=== PATIENT | female | born 1960 | race Hispanic/Latino ===

== ENCOUNTER 2024-03-17 12:24 | Emergency (ER) | payer SELFPAY ==
[2024-03-17] MEDS ORDERED: ONDANSETRON 4 MG/2 ML VIAL ONE (13:17)
[2024-03-17] MEDS ORDERED: FAMOTIDINE 20 MG/2 ML VIAL IV ONE (13:18)
[2024-03-17] MEDS ORDERED: NA CHLORIDE 0.9% 1,000 ML ONE (13:18)
[2024-03-17] MEDS ORDERED: PANTOPRAZOLE 40 MG INJ ONE (13:18)
[2024-03-17] MEDS ORDERED: MORPHINE 4 MG/ML SYR ONE (13:18)
[2024-03-17 13:21] LABS: Absolute Lymphocytes (CBC) 0.8 K/uL (0.7-4.9); Absolute Monocytes 0.2 K/uL (0.1-1.3); Absolute Neutrophil 6.6 K/uL (1.8-8.0); Basophils % 0.1 % (0-1.3); Hematocrit 30.3 % (36.0-45.0); Hemoglobin 10.1 g/dL (12.0-15.0); Lymphocytes % 10.3 % (15.3-44.8); MCH 30.3 pg (27.0-35.0); MCHC 33.4 g/dL (32.0-36.0); MCV 90.8 fL (80-100); MPV 9.8 fL (7.6-11.3); Monocytes % 2.6 % (3.3-12.3); Platelets 113 thou/uL (152-406); RBC Red Blood Cell Count 3.34 M/uL (3.86-4.86); Red Cell Distribution Width 14.8 % (12.1-15.2)
[2024-03-17 13:40] LABS: Albumin 2.2 g/dL (3.4-5.0); Albumin/Globulin Ratio 0.6 (1.1-1.8); Anion Gap 9.3 mEq/L (5.0-15.0); Bilirubin Total 0.8 mg/dL (0.2-1.0); Globulin 3.6 g/dL (2.3-3.5); Potassium 3.3 mEq/L (3.5-5.1); Protein, Total 5.8 g/dL (6.4-8.2)
--- NOTE | 2024-03-17 14:34 | RAD REPORT ---
EXAM DESCRIPTION: RAD - Chest Single View - 03/17/2024 2:22 pm CLINICAL HISTORY: COUGH COMPARISON: <Comparisons> FINDINGS: Lines: None. Lungs: Prominence of the basilar interstitial markings, left greater than right. Pleural: No significant pleural effusions or pneumothorax. Cardiac: The heart size is within normal limits. Mediastinum: Within normal limits. Bones: No acute fractures. Other: None IMPRESSION: Nonspecific prominence of the basilar interstitial markings without definite acute proce ss. Correlating with the same-day CT of the abdomen/pelvis, a trace left pleural effusion is noted.
--- NOTE | 2024-03-17 14:39 | RAD REPORT ---
EXAM DESCRIPTION: CTAbdomen Pelvis W Contrast - 03/17/2024 2:11 pm CLINICAL HISTORY: ABD PAIN COMPARISON: No comparisons TECHNIQUE: CT of the abdomen and pelvis was performed with contrast. All CT scans are performed using dose optimization technique as appropriate and may include automated exposure control or mA/KV adjustment according to patient size. FINDINGS: Lower chest: Trace pleural fluid bilaterally. Probable mild atelectasis. Liver: No acute abnormality or suspicious lesions. Biliary: No biliary ductal dilatation. Stomach: No significant focal abnormality. Duodenum: No significant focal abnormality. Pancreas: No significant abnormality. Spleen: No significant abnormality. Adrenal: No suspicious lesions. Kidney/ureter: No hydronephrosis. 2 mm stone in left kidney. Retroperitoneum: No retroperitoneal adenopathy. Vascular: No aneurysm. Bowel: Normal appendix. No bowel obstruction.. Peritoneum: No ascites or free air. Bladder: Grossly unremarkable. Reproductive: No adnexal masses. Bones: No acute fracture. Moderate disc height loss L5-S1. Other: n/a IMPRESSION: No acute intra-abdominal or pelvic finding. Nonobstructive left nephrolithiasis. No appe ndicitis.
[2024-03-17 14:43] LABS: Blood Morphology Comment NOT SEEN (NOT SEEN); Platelet Estimate ADEQ; White Blood Cell Scan OK (OK)
--- NOTE | 2024-03-17 15:45 | ER ---
Nurse's Notes [facility] Name: Erica Bee Age: 63 yrs Sex: Female : 1960 Arrival Date: 03/17/2024 Time: 12:24 Bed 18 Private MD: Diagnosis: Melena;Hematemesis Presentation: 03/17 12:39 Chief complaint: Patient states: Abdominal pains, nausea, fever, diarrhea, dark stools, ll1 dizzy, MORGAN, weak, muscle pains for 8 days. Coronavirus screen: Client denies travel out of the [place] in the last 14 days. Ebola Screen: Patient denies travel to an Ebola-affected area in the 21 days before illness onset. Initial Sepsis Screen: Does the patient meet any 2 criteria? No. Patient's initial sepsis screen is negative. Does the patient have a suspected source of infection? No. Patient's initial sepsis screen is negative. Risk Assessment: Do you want to hurt yourself or someone else? Patient reports no desire to harm self or others. Onset of symptoms was March 09, 2024. 12:39 Method Of Arrival: Ambulatory ll1 12:39 Acuity: ARMANDO 2 ll1 Triage Assessment: 12:40 General: Appears uncomfortable, ill, Behavior is calm, cooperative, appropriate for ll1 age, Reports fever for feeling ill for fatigue for. Neuro: Reports headache weakness. GI: Reports lower abdominal pain, upper abdominal pain, cramping, diarrhea, nausea. Historical: - Allergies: 12:41 No Known Allergies; ll1 - PMHx: 12:41 None; ll1 - PSHx: 12:41 None; ll1 - Immunization history:: Adult Immunizations up to date. - Infectious Disease History:: Denies. - Social history:: Smoking status: Patient denies any tobacco usage or history of. - Family history:: not pertinent. Screenin:[facility] ED Fall Risk Assessment (Adult) History of falling in the last 3 months, mb9 including since admission No falls in past 3 months (0 pts) Confusion or Disorientation No (0 pts) Intoxicated or Sedated No (0 pts) Impaired Gait No (0 pts) Mobility Assist Device Used No (0 pt) Altered Elimination No (0 pt) Score/Fall Risk Level 0 - 2 = Low Risk Oriented to surroundings, Maintained a safe environment, Educated pt \T\ family on fall prevention, incl call for assistance when getting out of bed. Abuse screen: Denies threats or abuse. Nutritional screening: No deficits noted. Tuberculosis screening: No symptoms or risk factors identified. Assessment: 13:34 General: Appears uncomfortable, Behavior is cooperative. Pain: Complains of pain in mb9 abdomen Pain does not radiate. Pain currently is 8 out of 10 on a pain scale. Quality of pain is described as throbbing, Pain began suddenly, Is continuous. Neuro: Hoffman Agitation-Sedation Scale (RASS): 0 - Alert and Calm Level of Consciousness is awake, alert, obeys commands, Oriented to person, place, time, situation, Appropriate for age. Cardiovascular: Patient's skin is warm and dry. Rhythm is sinus tachycardia. Respiratory: Airway is patent Respiratory effort is even, unlabored, Respiratory pattern is regular, symmetrical. Respiratory: Reports cough that is producing coffee ground emesis. GI: Abdomen is flat, non-distended, Bowel sounds present X 4 quads. Abd is soft and non tender X 4 quads. : No signs and/or symptoms were reported regarding the genitourinary system. EENT: No signs and/or symptoms were reported regarding the EENT system. Derm: Skin is pink, warm \T\ dry. Musculoskeletal: Range of motion: intact in all extremities. 14:31 Reassessment: No changes from previously documented assessment. Patient and/or family mb9 updated on plan of care and expected duration. Pain level reassessed. Patient is alert, oriented x 3, equal unlabored respirations, skin warm/dry/pink. 15:46 Reassessment: No changes from previously documented assessment. Patient and/or family mb9 updated on plan of care and expected duration. Pain level reassessed. Patient is alert, oriented x 3, equal unlabored respirations, skin warm/dry/pink. 17:29 Reassessment: No changes from previously documented assessment. Patient and/or family mb9 updated on plan of care and expected duration. Pain level reassessed. Patient is alert, oriented x 3, equal unlabored respirations, skin warm/dry/pink. Vital Signs: 12:39 BP 115 / 61; Pulse 117; Resp 16; Pulse Ox 99% on R/A; Height 5 ft. 2 in. ; Pain 10/10; ll1 13:36 BP 97 / 60; Pulse 105; Resp 16; Pulse Ox 100% on R/A; mb9 14:31 BP 101 / 55; Pulse 108; Resp 16; Pulse Ox 98% on R/A; mb9 15:48 BP 106 / 59; Pulse 102; Resp 18; Pulse Ox 100% on R/A; mb9 15:56 Weight 52.16 kg; Height 5 ft. 3 in. ; hb 17:29 BP 91 / 59; Pulse 99; Resp 16; Pulse Ox 99% on R/A; mb9 15:56 Body Mass Index 20.37 (52.16 kg, 160.02 cm) hb 12:39 Pain Scale: Adult ll1 ED Course: 12:27 Patient arrived in ED. im 12:41 Triage completed. ll1 12:42 Cecil Hernández MD is Attending Physician. rt 12:42 Arm band placed on Patient placed in an exam room, on a stretcher. ll1 12:59 Nicole Subramanian, RN is Primary Nurse. mb9 12:59 Placed in gown. Bed in low position. Call light in reach. Side rails up X 1. Provided mb9 Education on: press call light if needing anything. Client placed on continuous cardiac and pulse oximetry monitoring. NIBP monitoring applied. media monitor on. 13:15 Missed attempt(s): 20 gauge in right forearm. Bleeding controlled, band aid applied, mb9 catheter tip intact. 13:32 EKG done, by ED staff, reviewed by Cecil Hernández MD. em1 13:36 Initial lab(s) drawn, by ak, sent to lab. Inserted saline lock: 22 gauge in right mb9 antecubital area, using aseptic technique. Blood collected. 14:13 CT Abd/Pelvis - IV Contrast Only In Process Unspecified. EDMS 14:23 Chest Single View XRAY In Process Unspecified. EDMS 15:49 No provider procedures requiring assistance completed. mb9 15:49 Patient transferred, IV remains in place. mb9 15:54 called [facility] to start transfer talked to [facility] with Transfer Center. sp 16:44 Approval for pt: Erica Bee Facility: [facility] Address: [address] [place] [address], [address] #: [phone] Accepting MD: Dr. Chester Reed \[id number] Admin: Mikel Vela \[id number] Nurse Report #: [phone] Fax # (facesheet): [phone] *IMPORTANT*: Send imaging on disk and copy of chart with the patient. 17:48 called [facility] for transport talked to Jose. sp Administered Medications: 13:22 Drug: Famotidine IVP 20 mg IVP once; dilute with 10 mL 0.9% NaCl; give over 2 minutes mb9 Route: IVP; Site: right antecubital; 14:01 Follow up: Response: No adverse reaction mb9 13:28 Drug: Ondansetron IVP 4 mg IVP once; over 2 minutes Route: IVP; Site: right antecubital;mb9 14:01 Follow up: Response: No adverse reaction mb9 13:30 Drug: morphine IVP or IV 4 mg IVP once over 4 mins Route: IVP; Infused Over: 4 mins; mb9 Site: right antecubital; 14:01 Follow up: Response: No adverse reaction mb9 13:33 Drug: Pantoprazole IVP 80 mg IVP once Route: IVP; Site: right antecubital; mb9 14:01 Follow up: Response: No adverse reaction mb9 13:34 Drug: NS 0.9% IV 1000 ml IV at 1 bolus Per protocol; 1000 mL bolus Route: IV; Rate: 1 mb9 bolus; Site: right antecubital; 16:09 Follow up: Response: No adverse reaction; IV Status: Completed infusion mb9 Medication: 15:49 VIS not applicable for this client. mb9 Outcome: 15:45 ER care complete, transfer ordered by . rt 17:29 Transferred by ground EMS to [facility], Transfer form completed. mb9 X-rays sent w/ patient. 17:29 Condition: stable 17:29 Instructed on the need for transfer, 17:59 Patient left the ED. mb9 Signatures: Dispatcher [employer] EDMS Mariel Hartley Eric em1 Sherita Slaughter RN RN hb Lewis, Lynsay, RN RN 1 Nicole Subramanian RN RN mb9 Cecil Hernández MD MD rt Fernandez, Tiffani im
--- NOTE | 2024-03-17 15:46 | EDPHYS ---
Physician Documentation [facility] Name: Erica Bee Age: 63 yrs Sex: Female : 1960 Arrival Date: 03/17/2024 Time: 12:24 Bed 18 Private MD: ED Physician Cecil Hernández HPI: 03/17 13:50 This 63 yrs old Female presents to ER via Ambulatory with complaints of rt Headache, Fever, Abdominal Pain, Nausea/Vomiting/Diarrhea, Black/Tarry Stools, Dizziness. 13:50 Patient presents to the ED with generalized abdominal pain for about 8 days. Patient rt has been taking a lot of naproxen to no relief. Today, the patient developed black tarry stools as well as black vomit. Patient reports a headache, shortness of breath. Denies other acute complaints at this time, symptoms are moderate in severity, no other aggravating or alleviating factors.. Historical: - Allergies: 12:41 No Known Allergies; ll1 - PMHx: 12:41 None; ll1 - PSHx: 12:41 None; ll1 - Immunization history:: Adult Immunizations up to date. - Infectious Disease History:: Denies. - Social history:: Smoking status: Patient denies any tobacco usage or history of. - Family history:: not pertinent. ROS: 13:50 Constitutional: Negative for fever, chills, and weight loss, Cardiovascular: Negative rt for chest pain, palpitations, and edema, MS/Extremity: Negative for injury and deformity, Skin: Negative for injury, rash, and discoloration, 13:50 Abdomen/GI: Positive for abdominal pain, nausea, vomiting, Exam: 13:50 Constitutional: This is a well developed, well nourished patient who is awake, alert, rt and in no acute distress. Head/Face: Normocephalic, atraumatic. Chest/axilla: Normal chest wall appearance and motion. Nontender with no deformity. No lesions are appreciated. Cardiovascular: Regular rate and rhythm with a normal S1 and S2. No gallops, murmurs, or rubs. Normal PMI, no JVD. No pulse deficits. Respiratory: Lungs have equal breath sounds bilaterally, clear to auscultation and percussion. No rales, rhonchi or wheezes noted. No increased work of breathing, no retractions or nasal flaring. Skin: Warm, dry with normal turgor. Normal color with no rashes, no lesions, and no evidence of cellulitis. MS/ Extremity: Pulses equal, no cyanosis. Neurovascular intact. Full, normal range of motion. Neuro: Awake and alert, GCS 15, oriented to person, place, time, and situation. Cranial nerves II-XII grossly intact. Motor strength 5/5 in all extremities. Sensory grossly intact. Cerebellar exam normal. Normal gait. 13:50 ECG was reviewed by the Attending Physician. 13:50 Abdomen/GI: Tenderness diffusely without rebound, guarding, distention, Vital Signs: 12:39 BP 115 / 61; Pulse 117; Resp 16; Pulse Ox 99% on R/A; Height 5 ft. 2 in. ; Pain 10/10; ll1 13:36 BP 97 / 60; Pulse 105; Resp 16; Pulse Ox 100% on R/A; mb9 14:31 BP 101 / 55; Pulse 108; Resp 16; Pulse Ox 98% on R/A; mb9 15:48 BP 106 / 59; Pulse 102; Resp 18; Pulse Ox 100% on R/A; mb9 15:56 Weight 52.16 kg; Height 5 ft. 3 in. ; hb 17:29 BP 91 / 59; Pulse 99; Resp 16; Pulse Ox 99% on R/A; mb9 15:56 Body Mass Index 20.37 (52.16 kg, 160.02 cm) hb 12:39 Pain Scale: Adult ll1 MDM: 12:47 Patient medically screened. rt 19:44 Differential diagnosis: Bleeding ulcer, upper GI bleed, diverticulitis. Data reviewed: rt vital signs, nurses notes, lab test result(s), radiologic studies. Consideration of Admission/Observation Escalation of care including admission/observation considered. Patient requires transfer for GI coverage. I considered the following discharge prescriptions or medication management in the emergency department Medications were administered in the Emergency Department. See MAR. Independent interpretation of the following test(s) in the Emergency Department CT Scan: My interpretation is No bowel obstruction seen on interpretation of CT scan images. Counseling: I had a detailed discussion with the patient and/or guardian regarding the historical points, exam findings, and any diagnostic results supporting the discharge/admit diagnosis, lab results, radiology results, the need to transfer to another facility. Response to treatment: the patient's symptoms have markedly improved after treatment. 03/17 12:55 Order name: CBC with Diff; Complete Time: 14:43 rt 03/17 12:55 Order name: CMP; Complete Time: 14:34 rt 03/17 12:55 Order name: Lipase; Complete Time: 14:34 rt 03/17 12:55 Order name: Type And Screen; Complete Time: 14:34 rt 03/17 13:32 Order name: CBC Smear Scan; Complete Time: 14:43 EDMS 03/17 14:15 Order name: ABO/RH no charge; Complete Time: 14:34 EDMS 03/17 12:55 Order name: CT Abd/Pelvis - IV Contrast Only; Complete Time: 14:43 rt 03/17 13:32 Order name: Chest Single View XRAY; Complete Time: 14:43 rt 03/17 12:55 Order name: IV Saline Lock; Complete Time: 13:33 rt 03/17 12:55 Order name: Labs collected and sent; Complete Time: 13:33 rt 03/17 12:55 Order name: EKG - Nurse/Tech; Complete Time: 13:32 rt EC:50 Rate is 115 beats/min. Rhythm is regular, Sinus tachycardia with No ectopy. QRS [place] is rt Normal. ID interval is normal. QRS interval is normal. QT interval is normal. No Q waves. Administered Medications: 13:22 Drug: Famotidine IVP 20 mg IVP once; dilute with 10 mL 0.9% NaCl; give over 2 minutes mb9 Route: IVP; Site: right antecubital; 14:01 Follow up: Response: No adverse reaction mb9 13:28 Drug: Ondansetron IVP 4 mg IVP once; over 2 minutes Route: IVP; Site: right antecubital;mb9 14:01 Follow up: Response: No adverse reaction mb9 13:30 Drug: morphine IVP or IV 4 mg IVP once over 4 mins Route: IVP; Infused Over: 4 mins; mb9 Site: right antecubital; 14:01 Follow up: Response: No adverse reaction mb9 13:33 Drug: Pantoprazole IVP 80 mg IVP once Route: IVP; Site: right antecubital; mb9 14:01 Follow up: Response: No adverse reaction mb9 13:34 Drug: NS 0.9% IV 1000 ml IV at 1 bolus Per protocol; 1000 mL bolus Route: IV; Rate: 1 mb9 bolus; Site: right antecubital; 16:09 Follow up: Response: No adverse reaction; IV Status: Completed infusion mb9 Disposition Summary: 03/17/24 15:45 Transfer Ordered Notes: Transfer Location: [facility] rt Reason: Higher level of care rt Condition: Fair rt Problem: new rt Symptoms: have improved rt Accepting Physician: (03/17/24 17:59) mb9 Diagnosis - Melena rt - Hematemesis rt Forms: - Medication Reconciliation Form rt - SBAR form rt Signatures: Dispatcher [employer] EDLauri Arciniega RN RN ll1 Nicole Subramanian RN RN mb9 Cecil Hernández MD MD rt Corrections: (The following items were deleted from the chart) 12:56 12:56 CBC+H.LAB.BRZ ordered. EDMS EDMS 12:56 12:56 COMPREHENSIVE METABOLIC PANEL+C.LAB.BRZ ordered. EDMS EDMS 12:56 12:56 LIPASE+C.LAB.BRZ ordered. EDMS EDMS 12:56 12:56 TYPE AND SCREEN+BB.LAB.BRZ ordered. EDMS EDMS 17:59 15:45 DrDawood rt mb9
[2024-03-18 01:01] VITALS: BP 91/59; O2SAT 99
--- NOTE | 2024-03-18 13:05 | EKG ---
Test Date: 2024-03-17 Test Time: 13:23:29 Plush Cutter: MYRTLE MEASUREMENT RESULTS: Intervals: Rate: 115 NM: 146 QRSD: 72 QT: 298 QTc: 412 [place]: P: 51 NM: 146 QRS: -18 T: 34 INTERPRETIVE STATEMENTS: Sinus tachycardia Nonspecific ST abnormality Abnormal ECG No previous ECG available for comparison Electronically Signed On 03-18-24 13:03:07 CDT by Bill Maria
== END 2024-03-17 17:59 | disposition short-term general hospital (02) ==
LOC: ER 12:24
DX: K92.1 Melena (principal); K92.0 Hematemesis
CPT/HCPCS: 36415; 71045; 74177; 80053; 83690; 85025; 86850; 86900; 86901; 93005; 96361; 96374; 96375; 99285; C9113; J2405; J7030; Q9967